=== PATIENT | male | born 1970 ===

== ENCOUNTER 2017-03-15 14:35 | Emergency (ER) | payer SELFPAY ==
[2017-03-15 14:52] VITALS: TEMP 98.7
[2017-03-15] MEDS ORDERED: MethylPREDNISolone 40 mg Vial IM STA (16:11)
--- NOTE | 2017-03-15 16:29 | C.PDOC ---
History Of Present Illness 46-year-old male, presents to the emergency department with complaints of three- day duration of right lower back pain, developed after pulling heavy object. Pain is localized over lower back and worse with movement. Pt denies fever, chills, known direct trauma or injury, abd. pain, nausea/vomiting, denies weakness/numbness to B/L LEs, denies bladder/bowel incontinence, UTI sx, hematuria, any other associated symptoms. At the time of evaluation, pt appears in pain. Time Seen by Provider: 03/15/17 15:57 Chief Complaint (Nursing): Back Pain History Per: Patient History/Exam Limitations: no limitations Onset/Duration Of Symptoms: Days (3) Current Symptoms Are (Timing): Still Present Past Medical History Reviewed: Historical Data, Nursing Documentation, Vital Signs Vital Signs: Last Vital Signs Temp 98.7 F 03/15/17 14:49 Pulse 90 03/15/17 14:49 Resp 18 03/15/17 14:49 BP 175/85 H 03/15/17 14:49 Pulse Ox 99 03/15/17 17:13 Family History: States: No Known Family Hx - Social History Hx Alcohol Use: Yes Hx Substance Use: No - Immunization History Hx Tetanus Toxoid Vaccination: No Hx Influenza Vaccination: No Hx Pneumococcal Vaccination: No Review Of Systems Except As Marked, All Systems Reviewed And Found Negative. Constitutional: Negative for: Fever, Chills Cardiovascular: Negative for: Chest Pain Respiratory: Negative for: Shortness of Breath Gastrointestinal: Negative for: Vomiting, Abdominal Pain, Diarrhea Genitourinary: Negative for: Incontinence Musculoskeletal: Positive for: Back Pain Skin: Negative for: Rash Neurological: Negative for: Weakness, Numbness Physical Exam - Physical Exam Appears: Non-toxic, No Acute Distress Skin: Warm, Dry, No Rash Oral Mucosa: Moist Throat: No Erythema Neck: Normal ROM, Supple Chest: Symmetrical Cardiovascular: Rhythm Regular, No Murmur Respiratory: No Accessory Muscle Use, No Stridor, No Wheezing Gastrointestinal/Abdominal: Soft, No Tenderness, No Distention, No Guarding, No Rebound Back: No CVA Tenderness, Decreased ROM (due to pain), Muscle Spasm (lumbar paraspinal B/L), Paraspinal Tenderness (Lumbar, diffuse) Extremity: Normal ROM, No Deformity, No Swelling Neurological/Psych: Oriented x3, Normal Speech, Normal Motor, Normal Sensation, Normal Reflexes ED Course And Treatment O2 Sat by Pulse Oximetry: 99 (RA) Pulse Ox Interpretation: Normal - Other Rad L-spine X-Ray: Interpreted by Me, Viewed By Me Interpretation: no acute fx or sublux Progress Note: On re-eval, pt is afebrile, hemodynamicaly stable. NOn-toxic. Ambulatory in ED with stable gait. ENT: no acute findings. neck: Supple. Abd : benign, (-) guaridng, (-) rebound. back: (-) CVA tenderness. Neurologicaly intact. L-spine review, normal study. UA- normal. Pt has clinical findings c/ w back pain, muscle spasm. Pt advised on c ourse of ds. ref. to f/u with MD in 2-3 days for re-eval,. return to ED if any worsening or new changes. Disposition Counseled Patient/Family Regarding: Diagnosis, Need For Followup, Rx Given - Disposition Referrals: [facility] [Outside] Disposition: HOME/ ROUTINE Disposition Time: 17:08 Condition: STABLE Additional Instructions: LIght duty to lower back area Avoid heavy lifting, bend etc Take medication as prescribed Follow up with PMD in 2-3 days for re-evaluation. return to Ed if any worsening or new changes. Prescriptions: Gabapentin [Neurontin] 300 mg PO HS #10 cap Ibuprofen [Motrin Tab] 600 mg PO Q6 #20 tab Methocarbamol [Robaxin] 500 mg PO TID #14 tab traMADol [Ultram] 50 mg PO TID #7 tab Instructions: Muscle Spasm (ED), Back Pain (ED) Forms: [facility] ([place]ian), Work Excuse Print Language: SINHAL[place] - Clinical Impression Clinical Impression: Low back strain, Muscle spasm - Scribe Statement The provider has reviewed the documentation as recorded by the Scribe (Tabitha Anguiano) All medical record entries made by the Scribe were at my direction and personally dictated by me. I have reviewed the chart and agree that the record accurately reflects my personal performance of the history, physical exam, medical decision making, and the department course for this patient. I have also personally directed, reviewed, and agree with the discharge instructions and disposition.
[2017-03-15 17:41] LABS: URINE BACTERIA RARE (<OCC); URINE BILIRUBIN NEGATIVE (NEGATIVE); URINE BLOOD NEGATIVE (NEGATIVE); URINE CLARITY Clear (Clear); URINE COLOR Yellow (YELLOW); URINE GLUCOSE (UA) NORMAL (Normal); URINE LEUKOCYTE ESTERASE NEG Leu/uL (Negative); URINE NITRATE NEGATIVE (NEGATIVE); URINE PROTEIN 1+ mg/dL (NEGATIVE); URINE UROBILINOGEN NORMAL mg/dL (0.2-1.0)
[2017-03-15 18:10] VITALS: BP 148/85; PULSE 70; RESP 16; O2SAT 100
--- NOTE | 2017-03-15 18:17 | RAD ---
PROCEDURE: Radiographs of the Lumbar Spine. HISTORY: pain COMPARISON: No prior. FINDINGS: BONES: Normal alignment. No listhesis. No fracture. DISC SPACES: Unremarkable. OTHER FINDINGS: Degenerative changes noted at the lower thoracic spine IMPRESSION: No radiographic evidence of acute pathology at the lumbar spine.
== END 2017-03-15 18:09 | disposition home or self-care (01) ==
LOC: C.ER 14:35
DX: S39.012A Strain of muscle, fascia and tendon of lower back, initial encounter (principal); X50.0XXA Overexertion from strenuous movement or load, initial encounter; Y92.89 Other specified places as the place of occurrence of the external cause
CPT/HCPCS: 72100; 81001; 96372; 99283; J2270; J2920